=== PATIENT | male | born 1965 | race Caucasian/White ===

== ENCOUNTER 2023-09-25 16:27 | Inpatient (IN) | payer MEDICAID ==
[~2023-09-25] VITALS: Ht 167.6 cm; Wt 79.4 kg
[2023-09-25 16:29] VITALS: BP_SYST 126; PULSE 78; RESP 20; TEMP 97.9; O2SAT 94
[2023-09-25] MEDS ORDERED: PIPERACILLIN/TAZO 3.375 GM in D5W 50 ML IV ONE (16:45)
[2023-09-25 17:12] LABS: BASOPHILS % (AUTO) 0.6 % (0.0-2.0); EOSINOPHILS # (AUTO) 0.1 K/uL (0.0-0.4); HEMATOCRIT 25.6 % (36-54); HEMOGLOBIN 8.5 g/dL (14.0-18.0); LYMPHOCYTES # (AUTO) 1.4 K/uL (1.0-5.5); LYMPHOCYTES % (AUTO) 24.1 % (20.5-51.5); MEAN CORPUSCULAR HEMOGLOBIN 30 pg (27-31); MEAN CORPUSCULAR HGB CONC 33 % (32-36); MEAN CORPUSCULAR VOLUME 91 fL (79.0-98.0); MONOCYTES # (AUTO) 0.8 K/uL (0.0-1.0); MONOCYTES % (AUTO) 13.6 % (1.7-9.3); NEUTROPHILS # (AUTO) 3.5 K/uL (1.8-7.7); NEUTROPHILS % (AUTO) 59.7 % (40.0-70.0); PLATELET COUNT (AUTO) 213 K/uL (130-430); RED BLOOD CELL COUNT(AUTO) 2.81 MIL/uL (4.2-6.2); RED CELL DISTRIBUTION WIDTH 14.1 % (9.0-15.0); WHITE BLOOD COUNT (AUTO) 5.9 K/uL (4.8-10.8)
[2023-09-25 17:26] LABS: INR 1.2 (0.80-1.20); PROTHROMBIN TIME 12.7 SECS (9.5-12.5)
[2023-09-25] MEDS ORDERED: PIPERACILLIN/TAZOBACTAM 3.375 GM/VIAL (ZOSYN) IV ONE (17:40)
[2023-09-25 17:43] LABS: ALANINE AMINOTRANSFERASE 36 U/L (12-78); ALBUMIN 2.6 g/dL (3.4-4.8); ANION GAP 4 (5-15); ASPARTATE AMINOTRANSFERASE 22 U/L (10-37); CALCIUM 7.7 mg/dL (8.4-11.0); CARBON DIOXIDE 29 mmol/L (23-29); CHLORIDE 101 mmol/L (98-107); GFR AFRICAN AMERICAN 42 mL/min (>90); GLUCOSE 152 mg/dL (74-106); POTASSIUM 4.8 mmol/L (3.5-5.1); SODIUM SERUM 134 mmol/L (136-145); TOTAL BILIRUBIN 0.3 mg/dL (0.0-1.0); UREA NITROGEN, BLOOD 79 mg/dL (8-21)
[2023-09-25 17:44] LABS: BILIRUBIN,DIRECT 0.1 mg/dL (0.0-0.3)
[2023-09-25 17:45] LABS: GFR NON AFRICAN-AMERICAN 34 mL/min (>90)
[2023-09-25 17:59] LABS: BILIRUBIN,URINE NEGATIVE (NEGATIVE); CLARITY/URINE CLOUDY (CLEAR); COLOR,URINE YELLOW (YELLOW); GLUCOSE,URINE NEGATIVE (NEGATIVE); KETONES,URINE NEGATIVE (NEGATIVE); LEUKOCYTE ESTERASE ,URINE 1+ (NEGATIVE); NITRITE, URINE NEGATIVE (NEGATIVE); PROTEIN URINE 2+ (NEGATIVE); UROBILINOGEN,URINE 0.2 (0.2-1.0)
[2023-09-25 18:06] LABS: BLOOD, URINE TRACE (NEGATIVE)
[2023-09-25 18:10] LABS: BACTERIA,URINE MODERATE /HPF (None Seen)
[2023-09-25 18:11] LABS: YEAST,URINE Many /HPF (None Seen)
[2023-09-25] MEDS ORDERED: HYDR-3917 PO (18:57)
[2023-09-25] MEDS ORDERED: MULT-976 PO (18:57)
[2023-09-25] MEDS ORDERED: ACET325T53 PO (18:57)
[2023-09-25] MEDS ORDERED: FURO-150 PO (18:57)
[2023-09-25] MEDS ORDERED: CLOB50SO2 TP (18:57)
[2023-09-25] MEDS ORDERED: HYDR100T25 PO (18:57)
[2023-09-25] MEDS ORDERED: ACYC400T19 PO (18:57)
[2023-09-25] MEDS ORDERED: SENN-298 PO (18:57)
[2023-09-25] MEDS ORDERED: SSNOVOLOG SUBCUT (18:57)
[2023-09-25] MEDS ORDERED: NOR10 PO (18:57)
[2023-09-25] MEDS ORDERED: ASCO500T20 PO (18:57)
[2023-09-25] MEDS ORDERED: PIPERACILLIN/TAZO 3.375 GM in NS 50 ML IV ONE (19:30)
[2023-09-25 21:30] VITALS: O2SAT 96
[2023-09-26] MEDS: PIPERACILLIN/TAZO 3.375/DEX-IS 50 ML IV SCH ×2 (08:20→21:25)
[2023-09-26] MEDS ORDERED: ACETAMINOPHEN 325 MG TABLET PO PRN ×2 (08:30→08:45)
[2023-09-26] MEDS ORDERED: INSULIN ASPART 100 UNITS/ML, 10 ML VIAL (NovoLOG) SUBCUT PRN (08:30)
[2023-09-26 08:49] LABS: BASOPHILS # (AUTO) 0.1 K/uL (0.0-0.2); EOSINOPHILS # (AUTO) 0.1 K/uL (0.0-0.4); EOSINOPHILS % (AUTO) 1.3 % (0.0-4.0); HEMATOCRIT 27.2 % (36-54); HEMOGLOBIN 8.9 g/dL (14.0-18.0); LYMPHOCYTES # (AUTO) 1.7 K/uL (1.0-5.5); LYMPHOCYTES % (AUTO) 26.2 % (20.5-51.5); MEAN CORPUSCULAR HEMOGLOBIN 30 pg (27-31); MEAN CORPUSCULAR HGB CONC 33 % (32-36); MEAN CORPUSCULAR VOLUME 92 fL (79.0-98.0); MONOCYTES # (AUTO) 0.7 K/uL (0.0-1.0); MONOCYTES % (AUTO) 11.1 % (1.7-9.3); NEUTROPHILS # (AUTO) 3.9 K/uL (1.8-7.7); NEUTROPHILS % (AUTO) 60.4 % (40.0-70.0); PLATELET COUNT (AUTO) 229 K/uL (130-430); RED BLOOD CELL COUNT(AUTO) 2.96 MIL/uL (4.2-6.2); RED CELL DISTRIBUTION WIDTH 14.4 % (9.0-15.0); WHITE BLOOD COUNT (AUTO) 6.5 K/uL (4.8-10.8)
[2023-09-26] MEDS: NACL 0.9% 1,000 ML IV SCH ×2 (08:55→21:26)
[2023-09-26] MEDS ORDERED: cefTRIAXone 1 GM in D5W 50 ML IV ONE (09:00)
[2023-09-26 09:20] LABS: INR 1.2 (0.80-1.20); PROTHROMBIN TIME 12.4 SECS (9.5-12.5)
[2023-09-26 09:22] LABS: CALCIUM 8.9 mg/dL (8.4-11.0); CREATININE 2.06 mg/dL (0.55-1.30); POTASSIUM 4.4 mmol/L (3.5-5.1)
[2023-09-26 09:46] LABS: ALBUMIN 2.7 g/dL (3.4-4.8); TOTAL BILIRUBIN 0.3 mg/dL (0.0-1.0); TOTAL PROTEIN, SERUM 6.1 g/dL (6.4-8.3)
[2023-09-26 10:05] LABS: TOTAL IRON BIND. CAPACITY 260 ug/dL (250-450)
[2023-09-26 10:50] VITALS: BP_SYST 153; PULSE 85; RESP 20; TEMP 99.7; O2SAT 90
[2023-09-26 12:00] VITALS: BP_SYST 151; PULSE 96; RESP 20; TEMP 99.2; O2SAT 89
[2023-09-26] MEDS ORDERED: IPRATROPIUM/ALBUTEROL SULFATE 3 ML AMPUL.NEB (DUONEB) INH PRN (15:15)
[2023-09-26] MEDS: ACYCLOVIR 400 MG TABLET PO SCH ×2 (15:27→21:25)
[2023-09-26 16:00] VITALS: BP_SYST 141; PULSE 22; RESP 22; TEMP 99.6; O2SAT 92
[2023-09-26 16:29] VITALS: BP_SYST 156; PULSE 83; O2SAT 92
[2023-09-26 21:00] VITALS: BP_SYST 142; PULSE 78; RESP 20; TEMP 98.6; O2SAT 96
[2023-09-26 21:30] VITALS: O2SAT 96
[2023-09-26] MEDS: hydrALAZINE HCL 25 MG TABLET PO SCH (21:58)
[2023-09-27] VITALS (7 sets, daily range): BP systolic 121–174; PULSE 82–93; RESP 16–18; TEMP 97.3–98.7; O2SAT 93–97
[2023-09-27 05:30] LABS: BASOPHILS # (AUTO) 0.1 K/uL (0.0-0.2); EOSINOPHILS # (AUTO) 0.1 K/uL (0.0-0.4); EOSINOPHILS % (AUTO) 1.8 % (0.0-4.0); HEMATOCRIT 25.6 % (36-54); HEMOGLOBIN 8.4 g/dL (14.0-18.0); LYMPHOCYTES # (AUTO) 1.7 K/uL (1.0-5.5); LYMPHOCYTES % (AUTO) 29.4 % (20.5-51.5); MEAN CORPUSCULAR HEMOGLOBIN 30 pg (27-31); MEAN CORPUSCULAR HGB CONC 33 % (32-36); MEAN CORPUSCULAR VOLUME 90 fL (79.0-98.0); MONOCYTES # (AUTO) 0.6 K/uL (0.0-1.0); NEUTROPHILS # (AUTO) 3.3 K/uL (1.8-7.7); NEUTROPHILS % (AUTO) 56.8 % (40.0-70.0); PLATELET COUNT (AUTO) 217 K/uL (130-430); RED BLOOD CELL COUNT(AUTO) 2.84 MIL/uL (4.2-6.2); RED CELL DISTRIBUTION WIDTH 14.2 % (9.0-15.0); WHITE BLOOD COUNT (AUTO) 5.8 K/uL (4.8-10.8)
[2023-09-27 05:41] LABS: ALBUMIN 2.4 g/dL (3.4-4.8); CALCIUM 8.5 mg/dL (8.4-11.0); CREATININE 1.89 mg/dL (0.55-1.30); POTASSIUM 4.3 mmol/L (3.5-5.1); TOTAL BILIRUBIN 0.3 mg/dL (0.0-1.0); TOTAL PROTEIN, SERUM 5.6 g/dL (6.4-8.3)
[2023-09-27] MEDS: NACL 0.9% 1,000 ML IV SCH ×2 (06:20→17:26)
[2023-09-27] MEDS: hydrALAZINE HCL 25 MG TABLET PO SCH ×3 (06:47→23:28)
[2023-09-27] MEDS: PIPERACILLIN/TAZO 3.375/DEX-IS 50 ML IV SCH ×3 (08:22→21:00)
[2023-09-27] MEDS: ACYCLOVIR 400 MG TABLET PO SCH ×3 (08:23→20:37)
[2023-09-27] MEDS: amLODIPine BESYLATE 10 MG TABLET PO SCH (08:23)
[2023-09-27] MEDS ORDERED: amLODIPine BESYLATE 10 MG TABLET PO SCH (09:00)
[2023-09-27 09:56] LABS: COVID19 ANTIGEN SOFIA FIA NEGATIVE (NEGATIVE)
[2023-09-27 09:57] LABS: INFLUENZA TYPE A Negative (NEGATIVE); INFLUENZA TYPE B NEGATIVE (NEGATIVE)
[2023-09-27] MEDS: INSULIN LISPRO SLIDING SCALE 100 UNITS/ML, 3 ML VIAL (humaLOG) SUBCUT PRN (17:11)
[2023-09-28 00:01] VITALS: BP_SYST 140; PULSE 87; RESP 17; TEMP 97.9; O2SAT 93
[2023-09-28] MEDS: hydrALAZINE HCL 25 MG TABLET PO SCH ×3 (06:33→22:11)
[2023-09-28 07:50] LABS: CALCIUM 7.8 mg/dL (8.4-11.0); CREATININE 1.89 mg/dL (0.55-1.30); POTASSIUM 4.3 mmol/L (3.5-5.1)
[2023-09-28 08:00] VITALS: BP_SYST 158; PULSE 85; RESP 18; TEMP 97.8; O2SAT 93; O2SAT 94
[2023-09-28 08:11] LABS: BASOPHILS # (AUTO) 0.1 K/uL (0.0-0.2); BASOPHILS % (AUTO) 0.8 % (0.0-2.0); EOSINOPHILS # (AUTO) 0.2 K/uL (0.0-0.4); EOSINOPHILS % (AUTO) 2.6 % (0.0-4.0); HEMATOCRIT 26.5 % (36-54); HEMOGLOBIN 8.6 g/dL (14.0-18.0); LYMPHOCYTES # (AUTO) 1.7 K/uL (1.0-5.5); LYMPHOCYTES % (AUTO) 27.6 % (20.5-51.5); MEAN CORPUSCULAR HEMOGLOBIN 30 pg (27-31); MEAN CORPUSCULAR HGB CONC 33 % (32-36); MEAN CORPUSCULAR VOLUME 91 fL (79.0-98.0); MONOCYTES # (AUTO) 0.6 K/uL (0.0-1.0); NEUTROPHILS # (AUTO) 3.6 K/uL (1.8-7.7); PLATELET COUNT (AUTO) 218 K/uL (130-430); RED BLOOD CELL COUNT(AUTO) 2.91 MIL/uL (4.2-6.2); RED CELL DISTRIBUTION WIDTH 14.4 % (9.0-15.0); WHITE BLOOD COUNT (AUTO) 6.2 K/uL (4.8-10.8)
[2023-09-28 08:23] LABS: INR 1.3 (0.80-1.20); PROTHROMBIN TIME 13.1 SECS (9.5-12.5)
[2023-09-28] MEDS: PIPERACILLIN/TAZO 3.375/DEX-IS 50 ML IV SCH ×2 (09:27→20:37)
[2023-09-28] MEDS: ACYCLOVIR 400 MG TABLET PO SCH ×3 (09:28→20:40)
[2023-09-28] MEDS: amLODIPine BESYLATE 10 MG TABLET PO SCH (09:29)
[2023-09-28] MEDS: FUROSEMIDE 20 MG/2 ML VIAL IVP SCH ×2 (09:32→20:40)
[2023-09-28 10:59] VITALS: BP_SYST 141; PULSE 89; RESP 16; TEMP 97.3; O2SAT 96
[2023-09-28] MEDS: NACL 0.9% 1,000 ML IV SCH (14:00)
[2023-09-28 14:58] VITALS: BP_SYST 149; PULSE 90; RESP 16; TEMP 97.3; O2SAT 92
[2023-09-28] MEDS: INSULIN LISPRO SLIDING SCALE 100 UNITS/ML, 3 ML VIAL (humaLOG) SUBCUT PRN (18:06)
[2023-09-28 19:00] VITALS: BP_SYST 143; PULSE 87; RESP 12; TEMP 98.3; O2SAT 92
[2023-09-28 22:49] VITALS: BP_SYST 143; PULSE 87; RESP 12; TEMP 98.3; O2SAT 92
[2023-09-29] MEDS: hydrALAZINE HCL 25 MG TABLET PO SCH ×2 (05:18→14:09)
[2023-09-29 06:17] LABS: BASOPHILS # (AUTO) 0.1 K/uL (0.0-0.2); BASOPHILS % (AUTO) 0.7 % (0.0-2.0); EOSINOPHILS # (AUTO) 0.2 K/uL (0.0-0.4); EOSINOPHILS % (AUTO) 2.6 % (0.0-4.0); HEMOGLOBIN 8.8 g/dL (14.0-18.0); LYMPHOCYTES # (AUTO) 1.6 K/uL (1.0-5.5); LYMPHOCYTES % (AUTO) 22.9 % (20.5-51.5); MEAN CORPUSCULAR HEMOGLOBIN 30 pg (27-31); MEAN CORPUSCULAR HGB CONC 33 % (32-36); MEAN CORPUSCULAR VOLUME 92 fL (79.0-98.0); MONOCYTES # (AUTO) 0.5 K/uL (0.0-1.0); MONOCYTES % (AUTO) 7.1 % (1.7-9.3); NEUTROPHILS # (AUTO) 4.8 K/uL (1.8-7.7); NEUTROPHILS % (AUTO) 66.7 % (40.0-70.0); PLATELET COUNT (AUTO) 224 K/uL (130-430); RED BLOOD CELL COUNT(AUTO) 2.94 MIL/uL (4.2-6.2); RED CELL DISTRIBUTION WIDTH 14.4 % (9.0-15.0); WHITE BLOOD COUNT (AUTO) 7.2 K/uL (4.8-10.8)
[2023-09-29 06:36] LABS: ALBUMIN 2.6 g/dL (3.4-4.8); CREATININE 1.76 mg/dL (0.55-1.30); POTASSIUM 4.3 mmol/L (3.5-5.1); TOTAL BILIRUBIN 0.4 mg/dL (0.0-1.0)
[2023-09-29] MEDS: NACL 0.9% 1,000 ML IV SCH (09:42)
[2023-09-29] MEDS: PIPERACILLIN/TAZO 3.375/DEX-IS 50 ML IV SCH (09:43)
[2023-09-29] MEDS: FUROSEMIDE 20 MG/2 ML VIAL IVP SCH (09:44)
[2023-09-29] MEDS: ACYCLOVIR 400 MG TABLET PO SCH ×2 (09:44→14:11)
[2023-09-29] MEDS: amLODIPine BESYLATE 10 MG TABLET PO SCH (09:44)
[2023-09-29 10:00] VITALS: O2SAT 92
[2023-09-29 10:07] VITALS: BP_SYST 143; PULSE 87; O2SAT 92
[2023-09-29 11:10] VITALS: BP_SYST 170; PULSE 89; RESP 16; TEMP 98.1; O2SAT 93
[2023-09-29 13:51] VITALS: BP_SYST 149; PULSE 89; RESP 18; TEMP 98.4; O2SAT 94
[2023-09-29 23:06] LABS: SOURCE/TYPE ,BODY FLUID THORACENTESIS
[2023-09-29 23:07] LABS: BF APPEARANCE UNSPUN CLEAR (CLEAR); BODY FLUID COLOR YELLOW (LT YELLOW); BODY FLUID SOURCE/ TYPE THORACENTESIS; BODY FLUID TOTAL VOLUME 1100 mL; LYMPHOCYTES, BODY FLUID 76 %; MONOCYTES,BODY FLUID 8 %; NEUTROPHIL, BODY FLUID 16 %; RBC, BODY FLUID 594 /uL; WBC, BODY FLUID 653 /uL
[2023-09-30 13:48] LABS: BODY FLUID GLUCOSE 104 mg/dL; BODY FLUID TOTAL PROTEIN 2.2 g/dL
== END 2023-09-29 15:30 | DRG 139 ==
LOC: SED 16:27 → STU 19:55
PROVIDERS: ADMIT Internal Medicine; ATTEND Internal Medicine
PROC: 0W9B3ZZ Drainage of Left Pleural Cavity, Percutaneous Approach (ICD-10-PCS; principal; 2023-09-29)
DX: J18.9 Pneumonia, unspecified organism (principal); J96.20 Acute and chronic respiratory failure, unspecified whether with hypoxia or hypercapnia; E43 Unspecified severe protein-calorie malnutrition; G93.40 Encephalopathy, unspecified; I13.0 Hypertensive heart and chronic kidney disease with heart failure and stage 1 through stage 4 chronic kidney disease, or unspecified chronic kidney disease; I24.89 Other forms of acute ischemic heart disease; D63.1 Anemia in chronic kidney disease; I50.40 Unspecified combined systolic (congestive) and diastolic (congestive) heart failure; I27.20 Pulmonary hypertension, unspecified; N18.30 Chronic kidney disease, stage 3 unspecified; J44.0 Chronic obstructive pulmonary disease with (acute) lower respiratory infection; F03.B0 Unspecified dementia, moderate, without behavioral disturbance, psychotic disturbance, mood disturbance, and anxiety; N39.0 Urinary tract infection, site not specified; Z20.822 Contact with and (suspected) exposure to COVID-19; B02.9 Zoster without complications; E11.22 Type 2 diabetes mellitus with diabetic chronic kidney disease; Z90.49 Acquired absence of other specified parts of digestive tract; Z87.440 Personal history of urinary (tract) infections; Z86.73 Personal history of transient ischemic attack (TIA), and cerebral infarction without residual deficits; Z79.899 Other long term (current) drug therapy; Z79.4 Long term (current) use of insulin; Z74.01 Bed confinement status; Z88.8 Allergy status to other drugs, medicaments and biological substances; Z68.28 Body mass index [BMI] 28.0-28.9, adult
CPT/HCPCS: 32555; 36415; 71045; 71250-TC; 76376; 80048; 80053; 80061; 80076; 81000; 81001; 81015; 82728; 82947; 82962; 83037; 83540; 83550; 83605; 83690; 83880; 84157; 84484; 85025; 85610-TC; 85730-TC; 87040; 87070-TC; 87086; 87116; 88108; 88305; 89051-TC; 89060-TC; 93005; 93306; 94760; 96365; 99285; G0378; J1940; J2543